=== PATIENT | female | born 1980 | race Caucasian/White ===

== ENCOUNTER 2021-01-19 20:57 | Inpatient (IN) | payer MEDICAID, MEDICARE ==
[~2021-01-19] VITALS: Ht 170.2 cm; Wt 96.3 kg
[~2021-01-19 20:57] MED LIST: PRED50TA PO; PROP40TA72 PO; QUET150T2 PO; TRAM50TA2 PO
[2021-01-20] MEDS ORDERED: LORazepam 2 mg/ml vial IV ONE (05:45)
[2021-01-20] MEDS ORDERED: normal saline 1000ML IV soln IVB ONE (05:45)
[2021-01-20] MEDS ORDERED: haloperidol lactate 5mg/ml inj IM ONE (05:45)
[2021-01-20] MEDS ORDERED: normal saline 1000ml 1,000 ML IV ONE (05:45)
[2021-01-20] MEDS ORDERED: LIDOcaine 2% 10ml TOPICAL JELLY (Urojet) TP ONE (06:15)
[2021-01-20 06:23] LABS: BASOPHILS # (AUTO) 0.1 X10'3 (0-0.2); BASOPHILS % (AUTO) 0.8 % (0-1); EOSINOPHILS % (AUTO) 0.2 % (0-6); HEMATOCRIT 39.9 % (35.0-45.0); HEMOGLOBIN 13.3 g/dl (12.0-16.0); LYMPHOCYTES # (AUTO) 2.1 X10'3 (1.1-4.8); LYMPHOCYTES % (AUTO) 29.7 % (21-51); MEAN CORPUSCULAR HEMOGLOBIN 28.9 PG (27.0-31.0); MEAN CORPUSCULAR HGB CONC 33.3 g/dL (33.0-36.5); MEAN CORPUSCULAR VOLUME 86.8 FL (78-98); MEAN PLATELET VOLUME 6.3 FL (7.4-10.4); MONOCYTES # (AUTO) 0.7 X10'3 (0-0.9); MONOCYTES % (AUTO) 9.1 % (2-12); NEUTROPHILS # (AUTO) 4.3 X10'3 (1.8-7.7); NEUTROPHILS % (AUTO) 60.2 % (42-75); PLATELET COUNT 526 X10'3 (140-440); RED CELL DISTRIBUTION WIDTH 13.5 % (11.5-14.5); WHITE BLOOD COUNT 7.2 X10'3 (4.5-11.0)
[2021-01-20 06:42] LABS: CLARITY,URINE CLEAR (Clear); COLOR,URINE YELLOW (Yellow); GLUCOSE, URINE NEGATIVE (Neg); PROTEIN,URINE 300 mg/dl (Neg); UA COLLECTION TYPE FOLEY CATH
[2021-01-20 06:43] LABS: KETONES,URINE 40 mg/dl (Neg); LEUKOCYTE ESTERASE ,URINE NEGATIVE (Neg); NITRITES, URINE NEGATIVE (Neg); OCCULT BLOOD,URINE TRACE-LYSED (Neg); UROBILINOGEN,URINE 0.2 E.U/dL (0.2-1.0)
[2021-01-20 06:44] LABS: ALANINE AMINOTRANSFERASE 22 U/L (12-78); ALBUMIN 4.6 G/DL (3.4-5.0); ALBUMIN/GLOBULIN RATIO 1.3 (1.1-1.5); ALKALINE PHOSPHATASE 102 IU/L (46-116); ANION GAP 18 (8-16); ASPARTATE AMINO TRANSFERASE 14 U/L (10-37); BILIRUBIN,TOTAL 0.5 MG/DL (0.1-1.0); BLOOD UREA NITROGEN 13 MG/DL (7-18); BUN/CREATININE RATIO 10.5 (6.6-38.0); CHLORIDE 99 MMOL/L (99-107); CREATININE 1.24 MG/DL (0.40-0.90); GLUCOSE 175 MG/DL (70-104); POTASSIUM 3.1 MMOL/L (3.5-5.1); SODIUM 140 MMOL/L (135-145); TOTAL CARBON DIOXIDE 22.6 MMOL/L (24-32); TOTAL PROTEIN 8.2 G/DL (6.4-8.2); eGFR 48 ML/MIN
[2021-01-20 06:45] LABS: URINE AMPHETAMINE SCREEN NEGATIVE (Neg); URINE BARBITUATE SCREEN NEGATIVE (Neg); URINE BENZODIAZEPINES SCREEN NEGATIVE (Neg); URINE CANNABINOID SCREEN NEGATIVE (Neg); URINE COCAINE SCREEN NEGATIVE (Neg); URINE METHADONE SCREEN NEGATIVE (Neg); URINE OPIATE SCREEN NEGATIVE (Neg); URINE PHENCYCLIDINE SCREEN NEGATIVE (Neg)
[2021-01-20 06:46] LABS: HCG SERUM QL NEGATIVE
[2021-01-20 06:53] LABS: AMYLASE 133 U/L (25-115); CREATINE KINASE 77 U/L (26-192); ETHANOL < 0.010 GM/DL (0.0-0.010)
[2021-01-20 07:07] LABS: AMORPHOUS URATES 1+; BACTERIA,URINE FEW /HPF (Neg); MUCUS STRANDS FEW /LPF (Neg); RBC,URINE NONE SEEN /HPF (0-2); WBC,URINE 0-4 /HPF (0-4)
[2021-01-20 07:08] LABS: SQUAMOUS EPITHELIAL CELL,UR FEW /LPF (FEW)
[2021-01-20] MEDS ORDERED: mag hydrox/Alum hydrox/simeth 30ml oral suspension PO PRN ×2 (08:30→08:35)
[2021-01-20] MEDS ORDERED: cyclobenzaprine 10mg tablet PO PRN (08:30)
[2021-01-20] MEDS: dextrose 5%-normal saline 1,000 ML IV SCH ×2 (08:30→19:32)
[2021-01-20] MEDS ORDERED: haloperidol 5mg tablet PO PRN (08:30)
[2021-01-20] MEDS ORDERED: dicyclomine 10 MG capsule PO PRN (08:30)
[2021-01-20] MEDS ORDERED: thiamine inj. 100 MG in normal saline 100ml IV soln 100 ML IV ONE (08:30)
[2021-01-20] MEDS ORDERED: acetaminophen 325mg tablet PO PRN ×2 (08:35)
[2021-01-20] MEDS ORDERED: potassium Cl 40MEQ/1/2NS 520ml 520 ML IV PRN ×2 (08:35)
[2021-01-20] MEDS ORDERED: magnesium Cl slow-release 64mg tablet PO PRN (08:35)
[2021-01-20] MEDS ORDERED: magnesium 4gm in 100ml NS 100 ML IV PRN (08:35)
[2021-01-20] MEDS ORDERED: potassium Cl 20 mEq SR tablet PO PRN (08:35)
[2021-01-20] MEDS ORDERED: magnesium 2GM in 50ml NS 50 ML IV PRN (08:35)
[2021-01-20] MEDS ORDERED: ondansetron/PF 4mg/2ml inj IV PRN (08:35)
[2021-01-20] MEDS ORDERED: metoclopramide 5 mg/ml inj IV PRN (08:35)
[2021-01-20] MEDS ORDERED: bisacodyl 10mg suppository rectal RC PRN (08:35)
[2021-01-20] MEDS ORDERED: acetaminophen 650mg rectal suppository RC PRN (08:35)
[2021-01-20] MEDS ORDERED: diphenhydrAMINE 25mg capsule PO PRN (08:35)
[2021-01-20] MEDS ORDERED: magnesium hydroxide 30ml (MOM) UD suspension PO PRN (08:35)
--- NOTE | 2021-01-20 09:07 | NUR ---
spoke to marcellus from posion control informed that pt suppose to take xanax 0.5 mg daily but pt is taking 16 mg xanax daily and pt has not taken any xanax in 8 days and started having withdrawals and came to er waiting in lobby for 10 hrs and left in between and bought xanax 2mg as per or might be fentnyl as per but not sure ,as per marcellus follow hospital withdrawl protocol ,supportive care ,if concern of ingestion of fentnyl see for respitory distress.do not give romazicon and watch for seizure.notified dr mcgee .
[2021-01-20] MEDS ORDERED: ALPR-624 PO (09:17)
[2021-01-20] MEDS ORDERED: SERT25TA PO (09:17)
[2021-01-20] MEDS ORDERED: BUPR1FIL17 SL (09:17)
[2021-01-20] MEDS ORDERED: PROM25TA14 PO (09:17)
--- NOTE | 2021-01-20 10:05 | NUR ---
to ct scan.
--- NOTE | 2021-01-20 10:32 | NUR ---
recived call from pt mother and want update on pt informed that pt at bedside if needed more information as pt do not want me to give nay information to any family member.no further ques asked by pt mother.
[2021-01-20] MEDS: LORazepam 2 mg/ml vial IV PRN ×5 (12:30→20:26)
[2021-01-20] MEDS: haloperidol lactate 5mg/ml inj IM PRN ×2 (18:05→22:07)
--- NOTE | 2021-01-20 18:11 | NUR ---
PT AT BEDSIDE EXPLAINING THE PT HAS BEEN DIAGNOSED WITH NARCISTSTIC PERSONALITY DISORDER ,PT WAS NOT ABLE TO HANDLE IT AND HER LIFE SPLIT APART FROM 6 DAYS ,PT STARTED HAVING HALLUCINATION ,CONFUSED , PER PT PT STARTE DPLAYING THIS STUPID GAMES "BAD BITCH "COMPETITION AND WAS TAKING 5-6 XANAX WITH BEER AND IT DOES NOT DO ANYTHING TO THE PT .PT STARTED TAKING MORE THAN NORMAL DOSAGE OF XANAX EVERY DAY .PT SAID COULD BE PSYCHOSIS OR MAYBE RELATED TO HER BREAST IMPLANT WHICH WAS DONE IN JUN 2020 ANSD SINCE THEN SHE WAS C/O BREAST PAIN ,HOT FLUSHES.
--- NOTE | 2021-01-20 18:18 | NUR ---
AT BEDSIDE ,PT SITTING UP IN BED TALKING TO FAMILY MEMBER AT THIS TIME ,STILL CONFUSED AND MUMBLING .
[2021-01-20] MEDS: enoxaparin 40mg/0.4ml syringe SQ SCH (19:04)
[2021-01-20] MEDS: docusate sod 100mg capsule PO SCH (20:00)
[2021-01-20] MEDS: K and/or MAG REPLACEMENT MC SCH (20:00)
--- NOTE | 2021-01-20 23:01 | NUR ---
PTS CALLING FOR UPDATE. PRIMARY RN, SHAKIR, TALKING WITH HIM NW.
[2021-01-21] MEDS: LORazepam 2 mg/ml vial IV PRN ×2 (01:12→03:10)
--- NOTE | 2021-01-21 01:45 | NUR ---
patient climbing out of bed, almost pulled out hamilton cath and iv, got patient back in bed with some help and medicated her with 2mg ativan that at the time was not dc'd. patient calmed down and has stayed in bed. Addendum: 01/21/21 at 0224 by ROBIN 2mg ativan not dc will dc tomorrow in the system per pharmacy.
[2021-01-21] MEDS: haloperidol lactate 5mg/ml inj IM PRN (02:09)
[2021-01-21 03:06] LABS: BASOPHILS % (AUTO) 0.7 % (0-1); EOSINOPHILS # (AUTO) 0.1 X10'3 (0-0.9); EOSINOPHILS % (AUTO) 1.5 % (0-6); HEMATOCRIT 36.2 % (35.0-45.0); HEMOGLOBIN 11.9 g/dl (12.0-16.0); LYMPHOCYTES # (AUTO) 1.7 X10'3 (1.1-4.8); LYMPHOCYTES % (AUTO) 27.1 % (21-51); MEAN CORPUSCULAR HEMOGLOBIN 28.6 PG (27.0-31.0); MEAN CORPUSCULAR HGB CONC 32.8 g/dL (33.0-36.5); MEAN CORPUSCULAR VOLUME 87.3 FL (78-98); MEAN PLATELET VOLUME 6.4 FL (7.4-10.4); MONOCYTES # (AUTO) 0.5 X10'3 (0-0.9); NEUTROPHILS % (AUTO) 62.7 % (42-75); PLATELET COUNT 319 X10'3 (140-440); RED BLOOD COUNT 4.14 X10'6 (4.20-5.60); RED CELL DISTRIBUTION WIDTH 13.6 % (11.5-14.5); WHITE BLOOD COUNT 6.3 X10'3 (4.5-11.0)
--- NOTE | 2021-01-21 03:11 | NUR ---
report given to [facility]
--- NOTE | 2021-01-21 03:18 | NUR ---
report recieved from kati LÓPZE RN. questions answered. waiting for arrival .
--- NOTE | 2021-01-21 03:21 | NUR ---
1000ml out hamilton cath, yelloe urine clear.
--- NOTE | 2021-01-21 03:23 | NUR ---
blaine updated that patient is going to floor pcu.
[2021-01-21 03:28] LABS: ALANINE AMINOTRANSFERASE 17 U/L (12-78); ALBUMIN 3.2 G/DL (3.4-5.0); ALBUMIN/GLOBULIN RATIO 1.2 (1.1-1.5); ALKALINE PHOSPHATASE 83 IU/L (46-116); AMYLASE 90 U/L (25-115); ANION GAP 7 (8-16); ASPARTATE AMINO TRANSFERASE 13 U/L (10-37); BILIRUBIN,TOTAL 0.6 MG/DL (0.1-1.0); BLOOD UREA NITROGEN 6 MG/DL (7-18); CALCIUM 7.8 MG/DL (8.5-10.1); CHLORIDE 111 MMOL/L (99-107); CHOL/HDL RATIO 4.9 (0.00-4.99); CHOLESTEROL 177 MG/DL (0-200); GLUCOSE 102 MG/DL (70-104); HDL CHOLESTEROL 36 MG/DL (35-60); LDL CHOLESTEROL 111 MG/DL (50-100); LIPASE 84 U/L (73-393); PHOSPHORUS 3.2 MG/DL (2.3-4.5); SODIUM 144 MMOL/L (135-145); TOTAL CARBON DIOXIDE 26.2 MMOL/L (24-32); TOTAL PROTEIN 5.9 G/DL (6.4-8.2); TRIGLYCERIDES 79 MG/DL (20-135); eGFR > 90 ML/MIN
--- NOTE | 2021-01-21 03:50 | NUR ---
patient recieved at 0330 from kati LÓPEZ RN. ekg leads placed, vss, mrsa swab collected, patient asleep awakes to touch but is confused hallucinating speaking in rambles
[2021-01-21 04:00] VITALS: BP 118/72
[2021-01-21] MEDS: dextrose 5%-normal saline 1,000 ML IV SCH ×3 (04:13→19:47)
[2021-01-21 06:00] VITALS: BP 121/70
[2021-01-21] MEDS: K and/or MAG REPLACEMENT MC SCH ×2 (08:00→20:00)
[2021-01-21] MEDS: potassium Cl 20 mEq SR tablet PO PRN ×3 (09:46→21:22)
[2021-01-21] MEDS: docusate sod 100mg capsule PO SCH ×2 (09:47→21:21)
[2021-01-21] MEDS: folic acid 1mg tablet PO SCH (09:47)
[2021-01-21] MEDS: thiamine 100mg tablet PO SCH (09:47)
[2021-01-21] MEDS ORDERED: levetiracetam 250mg tablet PO SCH (10:00)
[2021-01-21 11:00] VITALS: BP 112/70
--- NOTE | 2021-01-21 11:15 | NUR ---
Pt refuses to d/c F/C - will try again later.
--- NOTE | 2021-01-21 12:44 | NUR ---
NEURO TELE MED CONSULT PER DR NAGEL - SPOKE WITH DR GREENWOOD - SHE ASSESSED PATIENT AND WILL GET WITH DR NAGEL FOR FURTHER ORDERS. NO NEW ORDERS AT THIS TIME.
[2021-01-21 15:00] VITALS: BP 101/71
--- NOTE | 2021-01-21 16:11 | NUR ---
D/C f/c - pt tolerated well. Will continue to monitor.
[2021-01-21] MEDS: buprenorphine/naloxone 2-0.5mg sublingual tablet SL SCH (17:35)
[2021-01-21] MEDS: propranolol 10mg tablet PO SCH (17:35)
[2021-01-21 19:00] VITALS: BP 119/87
--- NOTE | 2021-01-21 19:14 | NUR ---
Problems reprioritized. Patient report given, questions answered & plan of care reviewed with Priscilla RN.
--- NOTE | 2021-01-21 19:14 | NUR ---
Hourly rounding for day shit - pt has been able to reposition self throughout the shift.
[2021-01-21] MEDS: levetiracetam 250mg tablet PO SCH (21:20)
[2021-01-21] MEDS: clonazePAM 0.5mg tablet PO SCH (21:21)
[2021-01-21] MEDS: sertraline 25mg tablet PO SCH (21:22)
[2021-01-21] MEDS: enoxaparin 40mg/0.4ml syringe SQ SCH (21:23)
[2021-01-21 22:00] VITALS: BP 116/81
[2021-01-22 02:00] VITALS: BP 105/63
[2021-01-22] MEDS: dextrose 5%-normal saline 1,000 ML IV SCH ×2 (05:52→16:47)
[2021-01-22 06:03] LABS: BASOPHILS % (AUTO) 0.7 % (0-1); EOSINOPHILS # (AUTO) 0.3 X10'3 (0-0.9); EOSINOPHILS % (AUTO) 5.1 % (0-6); HEMATOCRIT 36.2 % (35.0-45.0); HEMOGLOBIN 11.9 g/dl (12.0-16.0); LYMPHOCYTES % (AUTO) 41.3 % (21-51); MEAN CORPUSCULAR HEMOGLOBIN 28.4 PG (27.0-31.0); MEAN CORPUSCULAR HGB CONC 32.8 g/dL (33.0-36.5); MEAN CORPUSCULAR VOLUME 86.5 FL (78-98); MEAN PLATELET VOLUME 6.6 FL (7.4-10.4); MONOCYTES # (AUTO) 0.4 X10'3 (0-0.9); MONOCYTES % (AUTO) 8.7 % (2-12); NEUTROPHILS # (AUTO) 2.2 X10'3 (1.8-7.7); NEUTROPHILS % (AUTO) 44.2 % (42-75); PLATELET COUNT 367 X10'3 (140-440); RED BLOOD COUNT 4.18 X10'6 (4.20-5.60); RED CELL DISTRIBUTION WIDTH 13.5 % (11.5-14.5); WHITE BLOOD COUNT 4.9 X10'3 (4.5-11.0)
[2021-01-22 06:25] LABS: ALANINE AMINOTRANSFERASE 21 U/L (12-78); ALBUMIN 3.3 G/DL (3.4-5.0); ALBUMIN/GLOBULIN RATIO 1.1 (1.1-1.5); ALKALINE PHOSPHATASE 83 IU/L (46-116); AMYLASE 51 U/L (25-115); ANION GAP 6 (8-16); ASPARTATE AMINO TRANSFERASE 22 U/L (10-37); BILIRUBIN,TOTAL 0.6 MG/DL (0.1-1.0); BLOOD UREA NITROGEN 6 MG/DL (7-18); BUN/CREATININE RATIO 10.2 (6.6-38.0); CALCIUM 8.1 MG/DL (8.5-10.1); CHLORIDE 107 MMOL/L (99-107); CREATININE 0.59 MG/DL (0.40-0.90); GLUCOSE 99 MG/DL (70-104); LIPASE 72 U/L (73-393); PHOSPHORUS 3.7 MG/DL (2.3-4.5); POTASSIUM 3.9 MMOL/L (3.5-5.1); SODIUM 138 MMOL/L (135-145); TOTAL CARBON DIOXIDE 25.2 MMOL/L (24-32); TOTAL PROTEIN 6.2 G/DL (6.4-8.2); eGFR > 90 ML/MIN
--- NOTE | 2021-01-22 06:42 | NUR ---
Patient in room PCU 3013. I have received report from Priscilla RN and had the opportunity to ask questions and assume patient care.
[2021-01-22 07:00] VITALS: BP 111/68
[2021-01-22] MEDS: K and/or MAG REPLACEMENT MC SCH ×2 (08:00→20:00)
[2021-01-22] MEDS ORDERED: LORazepam 1 MG tablet PO PRN (08:30)
[2021-01-22] MEDS ORDERED: LORazepam 2 mg/ml vial IV PRN (08:30)
[2021-01-22] MEDS: levetiracetam 250mg tablet PO SCH ×2 (08:41→21:24)
[2021-01-22] MEDS: folic acid 1mg tablet PO SCH (08:41)
[2021-01-22] MEDS: docusate sod 100mg capsule PO SCH ×2 (08:41→21:26)
[2021-01-22] MEDS: buprenorphine/naloxone 2-0.5mg sublingual tablet SL SCH (08:42)
[2021-01-22] MEDS: propranolol 10mg tablet PO SCH ×2 (08:42→21:26)
[2021-01-22] MEDS: clonazePAM 0.5mg tablet PO SCH ×2 (08:42→21:26)
[2021-01-22] MEDS: thiamine 100mg tablet PO SCH (08:42)
[2021-01-22] MEDS: sertraline 25mg tablet PO SCH ×2 (08:43→20:00)
[2021-01-22] MEDS: proMETHazine 25mg tablet PO SCH (08:43)
--- NOTE | 2021-01-22 09:51 | NUR ---
Paged EEG Dr Moore wants EEG completed on 13A [facility] stat. Thank you. Please call [phone]
--- NOTE | 2021-01-22 09:53 | NUR ---
EEG Staff Alisa called back and stated she is on her way to complete the EEG STAT
--- NOTE | 2021-01-22 10:51 | NUR ---
Paged Dr. NAGEL Stat EEG completed PAGER ID: [phone] MESSAGE: [facility] 2013A Jenna Cunningham EEG has been completed. [phone]
[2021-01-22 10:52] VITALS: BP 114/70
[2021-01-22 15:00] VITALS: BP 116/68
[2021-01-22 18:00] VITALS: BP 131/76
--- NOTE | 2021-01-22 18:14 | NUR ---
Problems reprioritized. Patient report given, questions answered & plan of care reviewed with Allison ROQUE.
[2021-01-22] MEDS: enoxaparin 40mg/0.4ml syringe SQ SCH (21:28)
[2021-01-22 22:00] VITALS: BP 113/72
[2021-01-23 02:00] VITALS: BP 137/84
[2021-01-23 06:00] VITALS: BP 131/88
[2021-01-23 06:23] LABS: EOSINOPHILS # (AUTO) 0.3 X10'3 (0-0.9); EOSINOPHILS % (AUTO) 6.2 % (0-6); HEMATOCRIT 37.1 % (35.0-45.0); HEMOGLOBIN 12.2 g/dl (12.0-16.0); LYMPHOCYTES # (AUTO) 1.8 X10'3 (1.1-4.8); LYMPHOCYTES % (AUTO) 43.7 % (21-51); MEAN CORPUSCULAR HEMOGLOBIN 28.5 PG (27.0-31.0); MEAN CORPUSCULAR HGB CONC 32.9 g/dL (33.0-36.5); MEAN CORPUSCULAR VOLUME 86.8 FL (78-98); MEAN PLATELET VOLUME 6.4 FL (7.4-10.4); MONOCYTES # (AUTO) 0.4 X10'3 (0-0.9); MONOCYTES % (AUTO) 9.7 % (2-12); NEUTROPHILS # (AUTO) 1.6 X10'3 (1.8-7.7); NEUTROPHILS % (AUTO) 39.4 % (42-75); PLATELET COUNT 368 X10'3 (140-440); RED BLOOD COUNT 4.28 X10'6 (4.20-5.60); RED CELL DISTRIBUTION WIDTH 13.4 % (11.5-14.5); WHITE BLOOD COUNT 4.1 X10'3 (4.5-11.0)
[2021-01-23 06:43] LABS: ALANINE AMINOTRANSFERASE 19 U/L (12-78); ALBUMIN 3.1 G/DL (3.4-5.0); ALBUMIN/GLOBULIN RATIO 1.1 (1.1-1.5); ALKALINE PHOSPHATASE 82 IU/L (46-116); AMYLASE 48 U/L (25-115); ANION GAP 0 (8-16); ASPARTATE AMINO TRANSFERASE 15 U/L (10-37); BILIRUBIN,TOTAL 0.4 MG/DL (0.1-1.0); BLOOD UREA NITROGEN 8 MG/DL (7-18); BUN/CREATININE RATIO 14.3 (6.6-38.0); CHLORIDE 107 MMOL/L (99-107); CREATININE 0.56 MG/DL (0.40-0.90); GLUCOSE 94 MG/DL (70-104); LIPASE 86 U/L (73-393); MAGNESIUM 1.9 MG/DL (1.5-2.4); PHOSPHORUS 4.6 MG/DL (2.3-4.5); POTASSIUM 3.6 MMOL/L (3.5-5.1); SODIUM 134 MMOL/L (135-145); TOTAL CARBON DIOXIDE 27.1 MMOL/L (24-32); TOTAL PROTEIN 5.9 G/DL (6.4-8.2); eGFR > 90 ML/MIN
[2021-01-23] MEDS: K and/or MAG REPLACEMENT MC SCH (08:00)
[2021-01-23] MEDS: sertraline 25mg tablet PO SCH (08:06)
[2021-01-23] MEDS: folic acid 1mg tablet PO SCH (08:07)
[2021-01-23] MEDS: propranolol 10mg tablet PO SCH (08:07)
[2021-01-23] MEDS: thiamine 100mg tablet PO SCH (08:07)
[2021-01-23] MEDS: levetiracetam 250mg tablet PO SCH (08:08)
[2021-01-23] MEDS: proMETHazine 25mg tablet PO SCH (08:08)
[2021-01-23] MEDS: docusate sod 100mg capsule PO SCH (08:08)
[2021-01-23] MEDS: clonazePAM 0.5mg tablet PO SCH (08:08)
[2021-01-23] MEDS: buprenorphine/naloxone 2-0.5mg sublingual tablet SL SCH (08:09)
[2021-01-23] MEDS: dextrose 5%-normal saline 1,000 ML IV SCH (08:09)
--- NOTE | 2021-01-23 09:43 | NUR ---
Dr. Moore called to have RN send a message to tele-neuro to review EEG and consult on whether to continue Keppra. Message was sent to tele-neuro.
[2021-01-23 11:00] VITALS: BP 123/85
[2021-01-23] MEDS ORDERED: nicotine 14mg patch - 24hr TD ONE (11:05)
--- NOTE | 2021-01-23 12:06 | NUR ---
Second attempt to reach telemed neurology consult. Telemed phone number called to request the neurologist to call RN or Dr. Moore
[2021-01-23] MEDS ORDERED: THIA50TA10 PO (14:29)
[2021-01-23] MEDS ORDERED: CLON0.5T4 PO (14:29)
[2021-01-23] MEDS ORDERED: FOLI0.8C PO (14:29)
[2021-01-23] MEDS ORDERED: MULT-1085 PO (14:29)
[2021-01-23] MEDS ORDERED: NICO-630 TOP (14:34)
[2021-01-23 15:00] VITALS: BP 127/71
--- NOTE | 2021-01-23 16:37 | NUR ---
Patient stable for discharge. Discharge instructions given to patient and . PIV removed x2 with catheter intact. Telemetry device removed. Patient transferred off unit via wheelchair with belongings to personal vehicle
[2021-01-24] MEDS ORDERED: LORazepam 2 mg/ml vial IV PRN (08:30)
[2021-01-24] MEDS ORDERED: LORazepam 1 MG tablet PO PRN (08:30)
== END 2021-01-23 16:29 | disposition home or self-care (01) | DRG 52 ==
LOC: ER 20:59 → ED HOLD 01-20 08:37 → PCU 3S 01-21 03:30 → OBSVTOIN 01-21 10:20
PROVIDERS: ADMIT Family Medicine; ATTEND Family Medicine
PROC: 4A10X4Z Monitoring of Central Nervous Electrical Activity, External Approach (ICD-10-PCS; principal; 2021-01-21)
DX: G92 Toxic encephalopathy (principal); N17.0 Acute kidney failure with tubular necrosis; F13.239 Sedative, hypnotic or anxiolytic dependence with withdrawal, unspecified; F41.9 Anxiety disorder, unspecified; E86.0 Dehydration; F31.9 Bipolar disorder, unspecified; F23 Brief psychotic disorder; R29.810 Facial weakness; Z20.822 Contact with and (suspected) exposure to COVID-19; Z88.6 Allergy status to analgesic agent; Z88.8 Allergy status to other drugs, medicaments and biological substances; Z82.49 Family history of ischemic heart disease and other diseases of the circulatory system; Z98.51 Tubal ligation status
CPT/HCPCS: 36415; 70450; 70551; 71045; 80053; 80061; 80305; 80320; 81001; 82150; 82550; 82553; 83036; 83690; 83735; 83874; 84100; 84145; 84443; 84484; 84703; 85025; 85610; 87081; 87635; 92508; 92616; 95816; 96361; 96372; 96374; 96375; 97161; 97530; 99285; C9803; G0378; J1630; J1650; J2060; J2405; J3411; J3480; J7030; J7042; Q0169

== ENCOUNTER 2021-02-01 05:44 | Emergency (ER) | payer MEDICAID ==
[~2021-02-01] VITALS: Ht 170.2 cm; Wt 62.0 kg
[~2021-02-01 05:44] MED LIST changes: +BUPR1FIL17 SL; +CLON0.5T4 PO; +FOLI0.8C PO; +MULT-1085 PO; +NICO-630 TOP; -PRED50TA PO; +PROM25TA14 PO; -QUET150T2 PO; +SERT25TA PO; +THIA50TA10 PO; -TRAM50TA2 PO
[2021-02-01 06:11] VITALS: BP 137/87
[2021-02-01 06:43] LABS: URINE HCG NEGATIVE (NEG)
[2021-02-01] MEDS ORDERED: CefTRIAXone 1000mg IM Kit (w/lidocaine diluent) IM STA (06:44)
[2021-02-01] MEDS ORDERED: azithromycin 250mg tablet PO ONE (06:45)
[2021-02-01 06:52] LABS: CLARITY,URINE SLIGHTLY CLOUDY (Clear); COLOR,URINE YELLOW (Yellow); UA COLLECTION TYPE VOIDED
[2021-02-01 06:53] LABS: GLUCOSE, URINE NEGATIVE (Neg); KETONES,URINE NEGATIVE (Neg); LEUKOCYTE ESTERASE ,URINE NEGATIVE (Neg); NITRITES, URINE NEGATIVE (Neg); OCCULT BLOOD,URINE NEGATIVE (Neg); PROTEIN,URINE NEGATIVE (Neg); UROBILINOGEN,URINE 0.2 E.U/dL (0.2-1.0)
[2021-02-01] MEDS ORDERED: VALA10002 PO (06:54)
[2021-02-01 06:55] LABS: MUCUS STRANDS FEW /LPF (Neg); SQUAMOUS EPITHELIAL CELL,UR MANY /LPF (FEW)
[2021-02-01 06:56] LABS: BACTERIA,URINE FEW /HPF (Neg); RBC,URINE 0-2 /HPF (0-2); WBC,URINE 0-4 /HPF (0-4)
== END 2021-02-01 07:44 | disposition home or self-care (01) ==
LOC: ER 05:45
DX: A64 Unspecified sexually transmitted disease (principal); F15.90 Other stimulant use, unspecified, uncomplicated; Z98.51 Tubal ligation status; Z98.890 Other specified postprocedural states; Z88.8 Allergy status to other drugs, medicaments and biological substances; Z79.899 Other long term (current) drug therapy
CPT/HCPCS: 36415; 81001; 81025; 86592; 87491; 87591; 96372; 99283; J0696